=== PATIENT | female | born 1975 | race Caucasian/White ===

== ENCOUNTER → 2024-03-09 | Outpatient (CLI) | payer OTHER, SELFPAY ==
--- NOTE | 2024-03-09 15:45 | MRI_ITS ---
STUDY: MRI CERVICAL SPINE WITHOUT CONTRAST REASON FOR EXAM: Female, 49 years old. chronic headaches TECHNIQUE: Standardized fat and water weighted pulse sequences were obtained in the sagittal and axial planes. COMPARISON: None FINDINGS: Normal foramen magnum and brainstem-cervical cord junction. Normal craniovertebral junction. Normal anterior atlantoaxial articulation. Normal odontoid process. There is reversal of the normal cervical lordosis. No marrow edema or fracture or compression deformity is present. C2-3: Normal endplates. Normal disc height, signal and morphology. Normal central canal and intervertebral neural foramina. C3-4: Normal endplates. Mild disc desiccation. Normal disc height and morphology. Normal central canal and right neural foramen. Moderate left foraminal stenosis with nerve root compression due to significant facet joint and mild uncovertebral hypertrophy. C4-5: Normal endplates. Mild disc desiccation and disc space narrowing without posterior bulging or herniation. Normal central canal and right neural foramen. Mild left foraminal stenosis due to uncovertebral and facet joint hypertrophy. C5-6: Normal endplates. Moderate to severe disc space narrowing with a posterior disc osteophyte complex and superimposed left paracentral disc protrusion causing compression on left anterior aspect of the cord and mild to moderate focal central canal stenosis. Mild compressive myelomalacia is also present at the cord at this level. Severe left foraminal stenosis with nerve root compression due to uncovertebral facet joint hypertrophy. Normal right neural foramen. C6-7: Severe disc space narrowing with diffuse disc osteophyte complex. Mild to moderate Modic endplate degenerative signal is present. Mild central canal stenosis. Severe left foraminal stenosis with nerve root compression. Normal right neural foramen. Small bilateral nerve root sleeve cysts are present which do not require any additional imaging or assessment. C7-T1: Normal endplates. Normal disc height, signal and morphology. Normal central canal and intervertebral neural foramina. Normal remaining aspects of the cervical cord. Normal visualized soft tissue structures. MRI/Spine Cervical (Routine) IMPRESSION: 1. Multilevel degenerative changes, as described above. 2. Moderate left anterior cord compression from a left paracentral disc protrusion at C5-C6 causing mild compressive myelomalacia Electronically Signed: William Conklin MD at 11:34 EST ,
== END | disposition home or self-care (01) ==
PROVIDERS: Referring Provider Anesthesiology Pain Medicine; Visit Provider Anesthesiology Pain Medicine
DX: M54.12 Radiculopathy, cervical region (principal)
CPT/HCPCS: 72141